=== PATIENT | male | born 1975 | race Caucasian/White ===

== ENCOUNTER 2018-06-08 07:32 | Emergency (ER) | payer OTHER, MEDICAID ==
[2018-06-08 07:40] VITALS: BP 123/78
[2018-06-08] MEDS ORDERED: ACETAMINOPHEN 325 MG TABLET PO ONE (08:03)
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
== END 2018-06-08 08:36 | disposition home or self-care (01) ==
LOC: ER 07:32
DX: M54.5 Low back pain (principal); V69.40XA Driver of heavy transport vehicle injured in collision with unspecified motor vehicles in traffic accident, initial encounter; R25.2 Cramp and spasm; E11.9 Type 2 diabetes mellitus without complications; I10 Essential (primary) hypertension
CPT/HCPCS: 99283